=== PATIENT | male | born 1970 | race Caucasian/White ===

== ENCOUNTER 2020-11-13 05:37 | Emergency (ER) | payer SELFPAY ==
[~2020-11-13] VITALS: Ht 185.4 cm; Wt 81.8 kg
--- NOTE | 2020-11-13 05:58 | ED.ADGEN ---
General Adult EDM: Chief Complaint: CHEST PAIN HPI: HPI: Patient is a previously healthy 50-year-old male who presents to the emergency room with multiple complaints. Patient states that he has got chest tightness and he has numbness on the left side of his body. He states that he feels dizzy and cannot walk. Patient is confused about the series of events. He does not remember what time he went to bed yesterday but believes it was early. He initially stated that he went to bed around noon. He is unclear when the last time he was normal was. He states when he woke up he was unable to walk due to dizziness and felt like he was falling. He noticed that the left side of his body felt numb and that his left hand did not seem to be working as well as it should be. He also noticed that his left leg appeared to be weaker than normal. He states that the chest tightness started when he woke up. He has some s hortness of breath. He has never had anything like this previously. He denies any drug use. He denies taking any kind of blood thinners. Review of Systems: Review of Systems: Complete ROS is negative unless otherwise documented in HPI Current Medications: Current Medications Medications (Trade) Dose Ordered Sig/Nila Start Time Stop Time Status Last Admin Dose Admin Info (CONTRAST GIVEN -- Rx MONITORING) 1 each PRN DAILY PRN 11/13/20 06:30 11/15/20 06:29 Iohexol (Omnipaque 350 Mg/ml) 60 ml 1X ONCE 11/13/20 06:30 11/13/20 06:31 DC Lorazepam (Ativan Inj) 1 mg 1X ONCE 11/13/20 09:45 11/13/20 09:46 DC Multivitamins 10 ml/Thiamine HCl 100 mg/Folic Acid 1 mg/Sodium Chloride 1,011.2 ml @ 1,000.088 mls/hr 1X ONCE 11/13/20 06:45 11/13/20 07:45 DC 11/13/20 06:39 1,000.088 MLS/HR Sodium Chloride 1,000 ml @ 1,000 mls/hr 1X ONCE 11/13/20 09:45 11/13/20 10:44 Allergies: Allergies: Allergies Coded Allergies Type Severity Reaction Last Updated Verified No Known Drug Allergies 11/13/20 No Physical Exam: PE: General: Awake, alert, NAD. Well Nourished, well hydrated. Cooperative HEENT: Atraumatic, EOMI, PERRL, airway patent, moist oral mucosa Neck: Supple, trachea midline Respiratory: CTA bilaterally, normal effort, no wheezing/crackles CV: RRR, no murmur, cap refill <2 GI: Soft, nondistended, nontender, no masses MSK: No obvious deformities Skin: Warm, dry, intact Neuro: A&O x2, speech NL, 5/5 strength in RUE/RLE distally and proximally, 4/5 strength in LUE/LLE, CN 2-12 intact however patient has difficult time following commands, nystagmus, abnormal cerebellar testing Psych: Normal affect, normal mood, not suicidal or homicidal Current Patient Data: Labs: Laboratory Tests Test 11/13/20 05:50 White Blood Count 9.8 x10^3/uL (4.0-11.0) Red Blood Count 4.53 x10^6/uL (4.30-5.70) Hemoglobin 15.8 g/dL (13.0-17.5) Hematocrit 46.0 % (39.0-53.0) Mean Corpuscular Volume 102 fL (79-100) H Mean Corpuscular Hemoglobin 35 pg (25-35) Mean Corpuscular Hemoglobin Concent 34 g/dL (31-37) Red Cell Distribution Width 13.9 % (11.5-14.5) Platelet Count 163 x10^3/uL (140-400) Neutrophils (%) (Auto) 76 % (31-73) H Lymphocytes (%) (Auto) 15 % (24-48) L Monocytes (%) (Auto) 8 % (0-9) Eosinophils (%) (Auto) 0 % (0-3) Basophils (%) (Auto) 1 % (0-3) Neutrophils # (Auto) 7.5 x10^3/uL (1.8-7.7) Lymphocytes # (Auto) 1.5 x10^3/uL (1.0-4.8) Monocytes # (Auto) 0.8 x10^3/uL (0.0-1.1) Eosinophils # (Auto) 0.0 x10^3/uL (0.0-0.7) Basophils # (Auto) 0.1 x10^3/uL (0.0-0.2) Prothrombin Time 11.5 SEC (11.7-14.0) L Prothrombin Time INR 0.9 (0.8-1.1) Activated Partial Thromboplast Time 23 SEC (24-38) L Sodium Level 139 mmol/L (136-145) Potassium Level 3.6 mmol/L (3.5-5.1) Chloride Level 102 mmol/L (98-107) Carbon Dioxide Level 23 mmol/L (21-32) Anion Gap 14 (6-14) Blood Urea Nitrogen 13 mg/dL (8-26) Creatinine 1.4 mg/dL (0.7-1.3) H Estimated GFR (Cockcroft-Gault) 53.2 Glucose Level 95 mg/dL (70-99) Calcium Level 8.7 mg/dL (8.5-10.1) Magnesium Level 1.7 mg/dL (1.8-2.4) L Troponin I Quantitative < 0.017 ng/mL (0.000-0.055) Ethyl Alcohol Level < 10 mg/dL (0-10) Laboratory Tests 11/13/20 05:50 Laboratory Tests 11/13/20 05:50 Vital Signs: Vital Signs Date Time Temp Pulse Resp B/P (MAP) Pulse Ox O2 Delivery O2 Flow Rate FiO2 11/13/20 06:49 68 20 142/91 (108) 98 Room Air 11/13/20 06:05 98.4 98.4 EKG: EKG: Sinus rhythm 86 bpm, no axis deviation, QTC 451, no T wave inversions, no ST elevations or ST depressions Heart Score: C/O Chest Pain: Yes HEART Score for Chest Pain: HEART Score for Chest Pain Response (Comments) Value History Slighlty/Non-Suspicious 0 ECG Normal 0 Age >45 - < 65 1 Risk Factors 1 or 2 Risk Factors 1 Troponin < Normal Limit 0 Total 2 Risk Factors: Risk Factors: DM, Current or recent (<one month) smoker, HTN, HLP, family history of CAD, obesity. Risk Scores: Score 0 - 3: 2.5% MACE over next 6 weeks - Discharge Home Score 4 - 6: 20.3% MACE over next 6 weeks - Admit for Clinical Observation Score 7 - 10: 72.7% MACE over next 6 weeks - Early Invasive Strategies Radiology/Procedures: Radiology/Procedures: IMAGING REPORT Signed PATIENT: HOLLAND GUAJARDO ACCOUNT: [id number] : 1970 LOCATION: ER AGE: 50 SEX: M EXAM STATUS: REG ER ORD. PHYSICIAN: IFEOMA BORJA MD REASON: chest pain PROCEDURE: PORTABLE CHEST 1V Single view chest dated 11/13/2020: No comparison available. Clinical Indication: Chest pain. Findings: Single upright portable exam of the chest was performed. Heart size and mediastinal contours are within normal limits. Lungs are clear. No consolidation or pleural effusion. No pneumothorax. Impression:: No acute radiographic abnormality. Electronically signed by: Stefan Oconnell MD (11/13/2020 6:26 AM) [facility] [place] and SIGNED BY: STEFAN OCONNELL MD DATE: 11/13/20 [id number] IMAGING REPORT Signed PATIENT: HOLLAND GUAJARDO ACCOUNT: [id number] : 1970 LOCATION: ER AGE: 50 SEX: M EXAM STATUS: PRE ER ORD. PHYSICIAN: IFEOMA BORJA MD REASON: L sided weakness/numbness, confusion, dizziness PROCEDURE: CT CODE STROKE HEAD WO CT head without contrast dated 11/13/2020. No comparison available. CLINICAL INDICATION: Left-sided weakness. TECHNIQUE: Contiguous axial imaging of the head was performed from skull base to vertex. No contrast administered. One or more of the following individualized dose reduction techniques were utilized for this examination: 1. Automated exposure control 2. Adjustment of the mA and/or kV according to patient size 3. Use of iterative reconstruction technique. FINDINGS: Ventricles and sulci are within normal limits for age. No midline shift or mass effect. Brain parenchyma is of normal attenuation. No hemorrhage or extra-axial collection. There is some low density in the left po which is most likely artifactual. Posterior fossa and brainstem otherwise unremarkable. Visualized paranasal sinuses and mastoid air cells are clear. No apparent calvarial abnormality. IMPRESSION: 1. No evidence of acute intracranial hemorrhage or mass. 2. No convincing evidence of acute CVA. There is some vague low density in the left po that is most likely artifactual. If indicated, MRI could better evaluate. Results discussed with ER physician at approximately 6:10 AM on the day of the study. FOR INTERNAL CODING PURPOSES RESULT CODE: C Electronically signed by: Stefan Oconnell MD (11/13/2020 6:10 AM) [facility] [place]CTATED and SIGNED BY: STEFAN OCONNELL MD DATE: 11/13/20 [id number] []IMAGING REPORT Signed PATIENT: HOLLAND GUAJARDO ACCOUNT: [id number] : 1970 LOCATION: ER AGE: 50 SEX: M EXAM STATUS: REG ER ORD. PHYSICIAN: IFEOMA BORJA MD REASON: L sided weakness/numbness, confusion, dizziness [phone] PROCEDURE: CTA HEAD/NECK - CODE STROKE CTA head and neck with contrast dated 11/13/2020. No comparison available. CLINICAL INDICATION: Left-sided weakness and numbness and confusion. TECHNIQUE: Contiguous axial imaging the head and neck performed following the intravenous administration of 80 cc Isovue-370. Performed as dedicated CTA and cut coronal and sagittal MIPS reconstructions and 3-D rotational reconstruction. One or more of the following individualized dose reduction techniques were utilized for this examination: 1. Automated exposure control 2. Adjustment of the mA and/or kV according to patient size 3. Use of iterative reconstruction technique Carotid Stenosis calculations for CT, MR, and conventional angiography are based upon measurements of the distal ICA diameter in accordance with the NASCET methodology. Stenosis calculations for carotid ultrasound studies are derived from validated velocity criteria which are known to correlate with the NASCET methodology. FINDINGS: Contrast bolus is adequate. Aortic arch is normal in caliber. Arch anatomy is standard. Bilateral subclavian artery and bilateral vertebral artery are patent. The left vertebral is somewhat hypoplastic and appears to end in PICA. Basilar artery is small and irregular in appearance. There is origin of the bilateral SECOND OPERATOR. tree shear operator are small but otherwise patent. The common carotid arteries and internal carotid arteries are patent. Minimal calcific plaque at the carotid bifurcation. The ICAs are patent the skull base. Petrous and cavernous segments are patent. SHASHI and MCA branches are patent. No proximal branch vessel occlusion or aneurysm. Postcontrast imaging the brain shows no abnormal enhancement. The dural venous sinuses are grossly patent. Paranasal sinuses and mastoid air cells are clear. No significant soft tissue abnormality. Limited images of lung apices are clear. No acute bony abnormality. Multilevel spondylosis. IMPRESSION: 1. The basilar artery is small and irregular in appearance which is of uncertain etiology but possibly be a normal variant. There is origin of the bilateral SECOND OPERATOR. 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 Correlate clinically. 2. Intradural left vertebral artery is not visualized and likely ends in PICA. 3. There is some vague low density in the left aspect of the po that persists on this exam. Subacute infarct cannot be excluded. If indicated, MRI could better evaluate. 4. No evidence of hemodynamically significant carotid stenosis Electronically signed by: Stefan Oconnell MD (11/13/2020 6:51 AM) [facility] [place] and SIGNED BY: STEFAN OCONNELL MD DATE: 11/13/20 [id number] Course & Med Decision Making: Course & Med Decision Making Pertinent Labs and Imaging studies reviewed. (See chart for details) Patient is a 50-year-old male with no past medical history who presents the emergency room with neurologic complaints. On exam, patient has left-sided arm and leg drift, left-sided numbness, nystagmus, abnormal cerebellar testing. Patient's presentation is concerning for acute stroke. Stroke protocol was set off and the patient was taken for a CT head. Glucose is normal at this time. Patient was evaluated by neurology. CBC, BMP, magnesium, troponin, EKG were ordered to evaluate for other causes of symptoms and risk factors for stroke. Patient's blood pressure is controlled at this time. Patient is not within the three-hour TPA window as we are unclear when his last normal was. Patient was discussed with Dr. Rosario who will assume care. Concern for new onset ataxia, last known well unsure with abnormal cerebellar testing worse on left than right upper extremity. Patient reports approximate 1 week ago while he was at [facility] (a bar, drinks "almost a pint" daily) had some epigastric abdominal discomfort with left-sided weakness now complains of inability to ambulate. States he lives in [place] and is here visiting his brother who recently purchased land. Presented to the ED brought in by EMS from nearby hotel/[place]. Denies any known Covid. Stroke scale 0/1, maybe slight weakness in LUE. Patient is very tremulous on exam with tongue fascicul ations, Ativan and banana bag given in ED. Patient w/sinus bradycardia, no tachycardia. Tremors have not increased or worsened in ed. CT concerning for subacute po infarct on the left. I spoke to [facility] neuro stroke, Dr. Willard. She reviewed images and is concerned for basilar artery occlusion. Accepts transfer to for arteriogram. Patient stable at time of transfer and agrees with this plan. I have spoken with the patient and/or caregivers. I have explained the patient's condition, diagnosis and treatment plan based on the information available to me at this time. I have answered the patient's and/or caregivers questions and answered any concerns. The patient and/or caregivers have as good an understanding of the patient's diagnosis, condition and treatment plan as can be expected at this point. The patient has been stabilized within the capability of the emergency department. The patient will be transported for further care and management or will be moved to an observation or inpatient service. I have communicated with the staff or medical practitioner taking over this patient's care. Critical Care: Authorized and Performed by: Madelyn Rodarte DO Total critical care time: approximately 30 minutes Due to a high probability of clinically significant, life threatening deterioration, the patient required my highest level of preparedness to intervene emergently and I personally spent this critical care time directly and personally managing the patient. This critical care time included obtaining a history; examining the patient; pulse oximetry; ventilator management if necessary; ordering and review of studies; arranging urgent treatment with development of a management plan; evaluation of patient's response to treatment; frequent reassessment; discussion with patient/family; and, discussions with other providers. This critical care time was performed to assess and manage the high probability of imminent, life-threatening deterioration that could result in multi-organ failure. It was exclusive of separately billable procedures and treating other patients and teaching time. Please see MDM section and the rest of the note for further information on patient assessment and treatment. Dragon Disclaimer: Dragon Disclaimer: This electronic medical record was generated, in whole or in part, using a voice recognition dictation system. Departure Departure Impression: Primary Impression: Altered mental status Additional Impressions: Basilar artery occlusion Ataxia Disposition: 02 [facility]M [facility] (accepted to [facility], Dr. Jens Fajardo, neurology) Condition: CRITICAL Problem Qualifiers IFEOMA BORJA MD Nov 13, 2020 05:58 MADELYN RODARTE DO Nov 13, 2020 06:24
[2020-11-13 06:07] LABS: BASO # 0.1 x10^3/uL (0.0-0.2); BASO % 1 % (0-3); EOS % 0 % (0-3); HEMOGLOBIN 15.8 g/dL (13.0-17.5); LYMPH # 1.5 x10^3/uL (1.0-4.8); LYMPH % 15 % (24-48); MEAN CORPUSCULAR HEMOGLOBIN 35 pg (25-35); MEAN CORPUSCULAR HGB CONC 34 g/dL (31-37); MEAN CORPUSCULAR VOLUME 102 fL (79-100); MONO # 0.8 x10^3/uL (0.0-1.1); MONO % 8 % (0-9); NEUT # 7.5 x10^3/uL (1.8-7.7); NEUT % 76 % (31-73); PLATELET COUNT 163 x10^3/uL (140-400); RED BLOOD COUNT 4.53 x10^6/uL (4.30-5.70); RED CELL DISTRIBUTION WIDTH 13.9 % (11.5-14.5); WHITE BLOOD COUNT 9.8 x10^3/uL (4.0-11.0)
--- NOTE | 2020-11-13 06:13 | RAD ---
CT head without contrast dated 11/13/2020. No comparison available. CLINICAL INDICATION: Left-sided weakness. TECHNIQUE: Contiguous axial imaging of the head was performed from skull base to vertex. No contrast administere d. One or more of the following individualized dose reduction techniques were utilized for this examinat ion: 1. Automated exposure control 2. Adjustment of the mA and/or kV according to patient size 3. Use of iterative reconstruction technique. FINDINGS: Ventricles and sulci are within normal limits for age. No midline shift or mass effect. Brain parench yma is of normal attenuation. No hemorrhage or extra-axial collection. There is some low density in t he left po which is most likely artifactual. Posterior fossa and brainstem otherwise unremarkable. Visualized paranasal sinuses and mastoid air cells are clear. No apparent calvarial abnormality. IMPRESSION: 1. No evidence of acute intracranial hemorrhage or mass. 2. No convincing evidence of acute CVA. There is some vague low density in the left po that is most likely artifactual. If indicated, MRI could better evaluate. Results discussed with ER physician at approximately 6:10 AM on the day of the study. FOR INTERNAL CODING PURPOSES RESULT CODE: C Electronically signed by: Stefan Oconnell MD (11/13/2020 6:10 AM) [facility]
[2020-11-13 06:16] LABS: CALCIUM 8.7 mg/dL (8.5-10.1); CREATININE 1.4 mg/dL (0.7-1.3); GFR 53.2; POTASSIUM 3.6 mmol/L (3.5-5.1)
[2020-11-13 06:18] LABS: PROTHROMBIN TIME PATIENT 11.5 SEC (11.7-14.0)
--- NOTE | 2020-11-13 06:28 | RAD ---
Single view chest dated 11/13/2020: No comparison available. Clinical Indication: Chest pain. Findings: Single upright portable exam of the chest was performed. Heart size and mediastinal contours are with in normal limits. Lungs are clear. No consolidation or pleural effusion. No pneumothorax. Impression:: No acute radiographic abnormality. Electronically signed by: Stefan Oconnell MD (11/13/2020 6:26 AM) [facility]
[2020-11-13] MEDS ORDERED: CONTRAST GIVEN. MC PRN (06:30)
[2020-11-13] MEDS ORDERED: IOHEXOL 350 MG/ML 100 ML VIAL. IV ONE (06:30)
[2020-11-13] MEDS ORDERED: MULTIVIT INFUSN,ADULT 4,VIT K 10 ML, THIAMINE INJ 100 MG, FOLIC ACID INJ 1 MG in IV NOR... IV ONE (06:45)
--- NOTE | 2020-11-13 06:53 | RAD ---
CTA head and neck with contrast dated 11/13/2020. No comparison available. CLINICAL INDICATION: Left-sided weakness and numbness and confusion. TECHNIQUE: Contiguous axial imaging the head and neck performed following the intravenous administration of 80 c c Isovue-370. Performed as dedicated CTA and cut coronal and sagittal MIPS reconstructions and 3-D ro tational reconstruction. One or more of the following individualized dose reduction techniques were utilized for this examinat ion: 1. Automated exposure control 2. Adjustment of the mA and/or kV according to patient size 3. Use of iterative reconstruction technique Carotid Stenosis calculations for CT, MR, and conventional angiography are based upon measurements of the distal ICA diameter in accordance with the NASCET methodology. Stenosis calculations for carotid ultrasound studies are derived from validated velocity criteria which are known to correlate with th e NASCET methodology. FINDINGS: Contrast bolus is adequate. Aortic arch is normal in caliber. Arch anatomy is standard. Bilateral sub clavian artery and bilateral vertebral artery are patent. The left vertebral is somewhat hypoplastic and appears to end in PICA. Basilar artery is small and irregular in appearance. There is origi n of the bilateral PATTERN DRAFTER. husker operator are small but otherwise patent. The common carotid arteries and internal carotid arteries are patent. Minimal calcific plaque at the carotid bifurcation. The ICAs are patent the skull base. Petrous and cavernous segments are patent. A CA and MCA branches are patent. No proximal branch vessel occlusion or aneurysm. Postcontrast imaging the brain shows no abnormal enhancement. The dural venous sinuses are grossly pa tent. Paranasal sinuses and mastoid air cells are clear. No significant soft tissue abnormality. Limi alejandro images of lung apices are clear. No acute bony abnormality. Multilevel spondylosis. IMPRESSION: 1. The basilar artery is small and irregular in appearance which is of uncertain etiology but possibl y be a normal variant. There is origin of the bilateral PATTERN DRAFTER. Prior basilar artery occlusion wit h collateral flow is possible. Correlate clinically. 2. Intradural left vertebral artery is not visualized and likely ends in PICA. 3. There is some vague low density in the left aspect of the po that persists on this exam. Subacut e infarct cannot be excluded. If indicated, MRI could better evaluate. 4. No evidence of hemodynamically significant carotid stenosis Electronically signed by: Stefan Oconnell MD (11/13/2020 6:51 AM) [facility]
--- NOTE | 2020-11-13 07:23 | EKG ---
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
[2020-11-13] MEDS ORDERED: IV NORMAL SALINE 1000ML BAG 1,000 ML IV ONE (09:45)
[2020-11-13 10:14] LABS: BARBITURATES NEG (NEG); BENZODIAZEPINES NEG (NEG); CANNABINOIDS NEG (NEG); COCAINE NEG (NEG); METHADONE NEG (NEG); OPIATES NEG (NEG); PHENCYCLIDINE NEG (NEG)
[2020-11-13 10:15] LABS: AMPHETAMINE/METHAMPHETAMINE NEG (NEG)
[2020-11-13 11:00] VITALS: BP 139/85
== END 2020-11-13 11:42 | disposition short-term general hospital (02) ==
LOC: ER 05:37
DX: R41.82 Altered mental status, unspecified (principal); I65.1 Occlusion and stenosis of basilar artery; R27.0 Ataxia, unspecified; R07.89 Other chest pain; Z20.822 Contact with and (suspected) exposure to COVID-19
CPT/HCPCS: 36415; 70450; 70496; 70498; 71045; 80048; 80307; 83735; 84484; 85025; 85610; 85730; 87426; 93005; 96365; 96366; 96375; 99291; G0480; J2060; J3411; J3490; J7030